=== PATIENT | male | born 2000 | race African-American/Black ===

== ENCOUNTER 2023-10-13 06:25 | Emergency (ER) | payer OTHER ==
[~2023-10-13] VITALS: Ht 175.3 cm; Wt 97.8 kg
[2023-10-13 06:29] VITALS: TEMP 98.3; O2SAT 99
[2023-10-13] MEDS: LIDOCAINE HCL/PF 1% 10 MG/ML 5ML VIAL INFIL ONE (06:45)
[2023-10-13] MEDS: BACITRACIN ZINC OINT UDPKT TOP ONE (06:45)
[2023-10-13 07:04] VITALS: BP 140/83; PULSE 110; RESP 19
== END 2023-10-13 07:04 | disposition home or self-care (01) ==
LOC: ER 06:25
DX: S61.011A Laceration without foreign body of right thumb without damage to nail, initial encounter (principal); J45.909 Unspecified asthma, uncomplicated; X58.XXXA Exposure to other specified factors, initial encounter; Y93.89 Activity, other specified; Y92.89 Other specified places as the place of occurrence of the external cause; Y99.8 Other external cause status
CPT/HCPCS: 12004; 99283